=== PATIENT | female | born 1985 | race Caucasian/White ===

== ENCOUNTER → 2023-12-07 | Outpatient (REF) | payer MEDICAID, OTHER | LOC: M SFHCWAGY 10:27 | PROVIDERS: ATTEND Nurse Practitioner Family | DX: Z12.4 Encounter for screening for malignant neoplasm of cervix (principal); Z11.51 Encounter for screening for human papillomavirus (HPV) ==

== ENCOUNTER → 2025-07-06 | Outpatient (CLI) | payer MEDICAID, OTHER | LOC: M WHC 14:17 | PROVIDERS: ATTEND Nurse Practitioner Family | DX: Z12.31 Encounter for screening mammogram for malignant neoplasm of breast (principal); R92.333 Mammographic heterogeneous density, bilateral breasts ==